=== PATIENT | male | born 1970 | race Caucasian/White ===

== ENCOUNTER → 2023-06-21 | Outpatient (CLI) | payer OTHER ==
--- NOTE | 2023-06-21 11:28 | US ---
EXAMINATION TYPE: US carotid duplex BILAT DATE OF EXAM: 06/21/2023 COMPARISON: NONE CLINICAL INDICATION: Male, 53 years old with history of I10 HYPERTENSION; headaches, resolved with HT N medication TECHNIQUE: Carotid duplex ultrasound examination. Indirect Doppler criteria was utilized. FINDINGS: EXAM MEASUREMENTS: RIGHT: Peak Systolic Velocity (PSV) cm/sec ----- Right CCA: 67.1 ----- Right ICA: 55.2 ----- Right ECA: 101.7 ICA/CCA ratio: 0.8 RIGHT: End Diastole cm/sec ----- Right CCA: 26.1 ----- Right ICA: 26.1 ----- Right ECA: 24.1 LEFT: Peak Systolic Velocity (PSV) cm/sec ----- Left CCA: 59.0 ----- Left ICA: 50.3 ----- Left ECA: 18.2 ICA/CCA ratio: 0.9 LEFT: End Diastole cm/sec ----- Left CCA: 25.0 ----- Left ICA: 23.9 ----- Left ECA: 18.2 VERTEBRALS (direction of flow): Right Vertebral: Antegrade Left Vertebral: Antegrade Rhythm: [employer] NOTES: Calcified plaque seen at BL carotid bulbs, slight increase in left distal carotid anterior wall, increased right ECA velocity when compared to left but within normal limits, no other abnormalities seen. IMPRESSION: No evidence for hemodynamically significant stenosis. Criteria for Assigning % of Stenosis / Diameter reduction (Estimation based on the indirect measurements of the internal carotid artery velocities (ICA PSV). 1. Normal (no stenosis)=ICA PSV < 125 cm/s: ratio < 2.0: ICA EDV<40 cm/s. 2. Less than 50% stenosis=ICA PSV < 125 cm/s: ratio < 2.0: ICA EDV<40 cm/s. 3. 50 to 69% stenosis=ICA PSV of 125 to 230 cm/s: ration 2.0 ? 4.0: ICA EDV 40-100 cm/s. 4. Greater than 70% stenosis to near occlusion= ICA PSV > 230 cm/s: ratio > 4.0: ICA EDV > 100 cm/s. 5. Near occlusion= ICA PSV velocities may be low or undetectable: variable ratio and ICA EDV. 6. Total occlusion=unable to detect flow.
== END | disposition home or self-care (01) ==
LOC: RADUSWWP 10:46
PROVIDERS: ATTEND Family Medicine
DX: I10 Essential (primary) hypertension (principal)
CPT/HCPCS: 93880